=== PATIENT | female | born 2000 | race Caucasian/White ===

== ENCOUNTER → 2024-08-18 | Outpatient (CLI) | payer MEDICAID, SELFPAY ==
[2024-08-17 12:46] LABS: HCG Qualitative,Urine Negative
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
== END | disposition home or self-care (01) ==
PROVIDERS: PCP Nurse Practitioner Family; Referring Provider Nurse Practitioner Family; Visit Provider Nurse Practitioner Family
DX: R51.9 Headache, unspecified (principal); R42 Dizziness and giddiness; S09.90XS Unspecified injury of head, sequela; V89.2XXS Person injured in unspecified motor-vehicle accident, traffic, sequela; Z87.828 Personal history of other (healed) physical injury and trauma
CPT/HCPCS: 70553; 81025; 84703; A9579